=== PATIENT | female | born 1990 | race Two or more races ===

== ENCOUNTER → 2016-06-20 | Outpatient (REF) | payer OTHER ==
[2016-06-20 17:13] LABS: ALBUMIN 3.5 GM/DL (3.2-5.2); ALBUMIN/GLOBULIN RATIO 1.13 (1.00-1.93); ALKALINE PHOSPHATASE 60 U/L (45-117); ALT/SGPT 24 U/L (12-78); ANION GAP 8 MEQ/L (8-16); AST/SGOT 19 U/L (15-37); BILIRUBIN,TOTAL 0.6 MG/DL (0.2-1.0); BLOOD UREA NITROGEN 8 MG/DL (7-18); CALCIUM LEVEL 8.4 MG/DL (8.5-10.1); CARBON DIOXIDE LEVEL 28 MEQ/L (21-32); CHLORIDE LEVEL 105 MEQ/L (98-107); CREATININE FOR GFR 0.73 MG/DL (0.55-1.02); GLOMERULAR FILTRATION RATE > 60.0 (>60); GLUCOSE, FASTING 82 MG/DL (70-105); POTASSIUM SERUM 3.9 MEQ/L (3.5-5.1); SODIUM LEVEL 141 MEQ/L (136-145); TOTAL PROTEIN 6.6 GM/DL (6.4-8.2)
[2016-06-20 17:45] LABS: BASO % 0.8 % (0.0-1.0); EOS # 0.3 K/mm3 (0.0-0.50); EOS % 5.9 % (0.0-3.0); LARGE UNSTAINED CELL # 0.1 K/mm3 (0.0-0.4); LARGE UNSTAINED CELL % 2.6 % (0.0-4.0); LYMPH # 1.9 K/mm3 (1.5-6.5); LYMPH % 35.9 % (24.0-44.0); MEAN CORPUSCULAR HEMOGLOBIN 29.9 pg (27.0-33.0); MEAN CORPUSCULAR HGB CONC 31.6 g/dl (32.0-36.5); MEAN CORPUSCULAR VOLUME 94.5 fl (80.0-96.0); MONO # 0.3 K/mm3 (0.0-0.8); MONO % 5.2 % (0.0-5.0); NEUTROPHILS # 2.7 K/mm3 (1.8-7.7); NEUTROPHILS % 49.7 % (36.0-66.0); PLATELET COUNT, AUTOMATED 181 k/mm3 (150-450); RED CELL DISTRIBUTION WIDTH 12.4 % (11.5-14.5); WHITE BLOOD COUNT 5.4 K/mm3 (4.0-10.0)
[2016-06-21 10:03] LABS: HEPATITIS B SURFACE ANTIBODY POSITIVE (POSITIVE)
[2016-06-28 00:06] LABS: ALT 20 IU/L (0-40); GGT 16 IU/L (0-60); HAPTOGLOBIN 85 mg/dL (34-200); HEPATITIS C QUANTITATION HCV Not Detected IU/mL (.); NECROINFLAM SCORE 0.05 (0.00-0.17); NECROINFLAMM GRADE A0-No activity (.); TOTAL BILIRUBIN 0.5 mg/dL (0.0-1.2)
== END ==
LOC: M SFHCPLAZ 12:59
PROVIDERS: ATTEND Internal Medicine Infectious Disease
DX: B19.20 Unspecified viral hepatitis C without hepatic coma (principal)

== ENCOUNTER → 2016-07-11 | Outpatient (CLI) | payer MEDICAID, OTHER ==
--- NOTE | 2016-07-11 12:23 | REP ---
RIGHT ANKLE, FOUR VIEWS: HISTORY: Pain. The patient is status post repair of a distal fibular fracture. Two metal screws are present. There is no acute fracture or dislocation. The joint space is normal in appearance. Ossified densities are present posterior to the talus. This represents ligamentous or tendon calcification or avulsion fracture fragments. A linear 2.2 cm metallic density is present in the calcaneus. IMPRESSION: The patient is status post repair of a distal fibula fracture. There is no acute fracture or dislocation. Signed by Kelechi Levin MD 07/11/2016 12:26 P
== END ==
LOC: M WUC 11:15
PROVIDERS: ATTEND Family Medicine
DX: M25.571 Pain in right ankle and joints of right foot (principal); Z87.81 Personal history of (healed) traumatic fracture

== ENCOUNTER 2016-07-14 06:25 | Emergency (ER) | payer OTHER ==
[~2016-07-14] VITALS: Ht 165.1 cm; Wt 67.6 kg
[2016-07-14 09:02] VITALS: BP 128/84
[2016-07-21] MEDS ORDERED: PROTPAK PO (11:13)
[2016-07-21] MEDS ORDERED: PROT1TAB2 PO (11:30)
== END 2016-07-14 09:05 | disposition home or self-care (01) ==
LOC: M ED 07:33
DX: F43.0 Acute stress reaction (principal); Z79.899 Other long term (current) drug therapy

== ENCOUNTER → 2016-07-20 | Outpatient (CLI) | payer OTHER ==
[~2016-07-20] MED LIST: PROT1TAB2 PO; PROTPAK PO
--- NOTE | 2016-07-20 08:11 | REP ---
Clinical: Nausea with right upper quadrant abdominal pain. Technique: Jewell scale ultrasound using curved array transducer. Findings: The liver and pancreas are normal in contour, size, and echogenicity without focal hepatic or pancreatic lesions identified. The gallbladder is normal without gallstones, wall thickening or pericholecystic fluid. No biliary ductal dilatation is appreciated, and the common bile duct measures 4.2 mm diameter. The right kidney is normal in reniform shape without hydronephrosis and measures 10.6 x 5.1 x 3.4 cm. No ascites. Impression: Normal right upper quadrant and gallbladder abdominal ultrasound. Signed by Jorge Millan MD 07/20/2016 08:03 A
--- NOTE | 2016-07-20 10:44 | REP ---
Hepatobiliary scan and gallbladder ejection fraction: History: Nausea, right upper quadrant pain, heartburn. Technique: 6.5 mCi of technetium-99m mebrofenin was injected and sequential anterior images are acquired. 65 minutes after the mebrofenin injection, the patient consumed 8 ounces Ensure and an additional 60 minutes of imaging was acquired. Regions of interest are plotted around the gallbladder. Findings: The initial hepatocellular parenchymal uptake phase is normal and homogeneous. Intra- and extra-hepatic bile ducts and duodenum are labeled by the 10 -minute image. The gallbladder is first labeled on the 15 -minute image. There is normal washout from the liver parenchyma into the gallbladder and small intestine on subsequent images. The gallbladder ejection fraction is normal at 54 %. Values greater than 35 % are considered normal with this technique. Impression: Normal hepatobiliary scan and gallbladder ejection fraction. Signed by Sonu Shetty MD 07/20/2016 10:36 A
== END ==
LOC: M RAD 07:31
PROVIDERS: ATTEND Physician Assistant Medical
DX: R11.2 Nausea with vomiting, unspecified (principal); R10.11 Right upper quadrant pain; R12 Heartburn

== ENCOUNTER → 2016-07-28 | Outpatient (CLI) | payer OTHER ==
[~2016-07-28] VITALS: Ht 166.4 cm; Wt 66.9 kg
[~2016-07-28] MED LIST changes: +LIDOCAINE 2% INJ 100 MG/5 ML SDV (FOR ANES.) As Ordered ONE; +MIDAZOLAM INJ 2 MG/2 ML VIAL (J2250) As Ordered ONE; +NS 1,000 ML IV SCH; +PROPOFOL 500 MG/50 ML VIAL As Ordered ONE; +THROMBIN SOLN 5,000 UNITS VIAL As Ordered ONE
--- NOTE | 2016-07-28 11:27 | ROOR ---
Patient Name: Joelle Bedolla Procedure Date: 07/28/2016 11:14 AM Date of : 1990 Age: 26 Room: [facility] Gender: Female Note Status: Finalized Procedure: Upper GI endoscopy Indications: Persistent vomiting (suspected cannabis related vomiting--reduced/resolved with PPI and abstinence) Providers: Robert NORIEGA MD Referring MD: Kiley Woodard MD Requesting Provider: Medicines: Monitored Anesthesia Care Complications: No immediate complications. Procedure: Pre-Anesthesia Assessment: - The heart rate, respiratory rate, oxygen saturations, blood pressure, adequacy of pulmonary ventilation, and response to care were monitored throughout the procedure. The Endoscope was introduced through the mouth, and advanced to the second part of duodenum. The upper GI endoscopy was accomplished without difficulty. The patient tolerated the procedure well. Findings: The examined esophagus was normal. Minimal inflammation was found in the gastric antrum. Biopsies were taken with a cold forceps for Helicobacter pylori testing. The exam of the stomach was otherwise normal. The examined duodenum was normal. Impression: - Normal esophagus. - Mild Gastritis. Biopsied. - Normal examined duodenum. Recommendation: - Observe patient's clinical course. - Continue present medications. - Telephone endoscopist for pathology results in 2 weeks. Robert Noriega MD Robert NORIEGA MD 07/28/2016 11:26:21 AM This report has been signed electronically. Number of Addenda: 0 Note Initiated On: 07/28/2016 11:14 AM Estimated Blood Loss: Estimated blood loss: none.
[2016-07-28 11:45] VITALS: BP 129/95
== END | disposition home or self-care (01) ==
LOC: M OPP 09:19
PROVIDERS: ATTEND Internal Medicine Gastroenterology
DX: K29.70 Gastritis, unspecified, without bleeding (principal); F41.9 Anxiety disorder, unspecified; F17.200 Nicotine dependence, unspecified, uncomplicated; Z79.899 Other long term (current) drug therapy
CPT/HCPCS: 43239; 88305; 88313; 99156; J2250

== ENCOUNTER → 2016-12-12 | Outpatient (REF) | payer OTHER ==
[~2016-12-12] MED LIST changes: -LIDOCAINE 2% INJ 100 MG/5 ML SDV (FOR ANES.) As Ordered ONE; -MIDAZOLAM INJ 2 MG/2 ML VIAL (J2250) As Ordered ONE; -NS 1,000 ML IV SCH; -PROPOFOL 500 MG/50 ML VIAL As Ordered ONE; -THROMBIN SOLN 5,000 UNITS VIAL As Ordered ONE
== END ==
LOC: M SFHCLERA 14:31
PROVIDERS: ATTEND Nurse Practitioner Family
DX: R10.9 Unspecified abdominal pain (principal)

== ENCOUNTER → 2017-03-14 | Outpatient (CLI) | payer OTHER | LOC: M OUTALCOH 09:48 | PROVIDERS: ATTEND Psychiatry & Neurology Psychiatry | DX: F10.20 Alcohol dependence, uncomplicated (principal) ==

== ENCOUNTER → 2017-04-05 | Outpatient (RCR) | payer MEDICAID | LOC: M OUTALCOH 03-22 09:52 | PROVIDERS: ATTEND Psychiatry & Neurology Psychiatry | DX: F10.20 Alcohol dependence, uncomplicated (principal); F12.20 Cannabis dependence, uncomplicated; F17.200 Nicotine dependence, unspecified, uncomplicated ==

== ENCOUNTER 2017-04-06 10:57 | Outpatient (RCR) | payer MEDICAID | END 2017-05-06 | LOC: M OUTALCOH 04-10 09:00 | DX: F10.20 Alcohol dependence, uncomplicated (principal); F12.20 Cannabis dependence, uncomplicated; F17.200 Nicotine dependence, unspecified, uncomplicated ==

== ENCOUNTER → 2017-04-18 | Outpatient (REF) | payer MEDICAID, OTHER | LOC: M SFHCPLAZ 11:10 | PROVIDERS: ATTEND Family Medicine | DX: Z11.3 Encounter for screening for infections with a predominantly sexual mode of transmission (principal); Z12.4 Encounter for screening for malignant neoplasm of cervix; Z86.19 Personal history of other infectious and parasitic diseases ==

== ENCOUNTER → 2019-06-24 | Outpatient (REF) | payer OTHER ==
[2019-06-24 17:58] LABS: HEMATOCRIT 43.2 % (36.0-47.0); HEMOGLOBIN 14.1 g/dl (12.0-15.5); MEAN CORPUSCULAR HGB CONC 32.6 g/dl (32.0-36.5); MEAN CORPUSCULAR VOLUME 88.9 fl (80.0-96.0); PLATELET COUNT, AUTOMATED 212 10^3/uL (150-450); RED BLOOD COUNT 4.86 10^6/uL (4.00-5.40); WHITE BLOOD COUNT 9.2 10^3/uL (4.0-10.0)
[2019-06-25 10:04] LABS: HEPATITIS B SURFACE ANTIGEN NEGATIVE (NEGATIVE); HEPATITIS C VIRUS ABY INDEX 0.1 INDEX (<0.8); HIV 1&2 SCREEN CENTAUR NEGATIVE (NEGATIVE); RUBELLA IgG QUALITATIVE IMMUNE (IMMUNE)
== END ==
LOC: M PLALAB 12:58
PROVIDERS: ATTEND Obstetrics & Gynecology
DX: Z34.91 Encounter for supervision of normal pregnancy, unspecified, first trimester (principal)

== ENCOUNTER → 2019-07-28 | Outpatient (REF) | payer OTHER ==
[2019-07-28 15:11] LABS: CHLAMYDIA DNA AMPLIFICATION NEGATIVE (NEGATIVE); GC DNA AMPLIFICATION NEGATIVE (NEGATIVE)
== END ==
LOC: M SFHCWAGY 12:54
PROVIDERS: ATTEND Obstetrics & Gynecology
DX: Z34.91 Encounter for supervision of normal pregnancy, unspecified, first trimester (principal); Z3A.00 Weeks of gestation of pregnancy not specified

== ENCOUNTER → 2019-08-19 | Outpatient (CLI) | payer OTHER ==
--- NOTE | 2019-08-20 16:15 | REP ---
Clinical: Anatomical evaluation. Comparison: None. Findings: Examination demonstrates a single live intrauterine in cephalic presentation. motion is identified by technologist. Placenta is noted posterior and grade I without evidence for placenta previa or abruption. Amniotic fluid volume is normal. Cervix measures 3.5 cm in length and appears closed. No evidence for nuchal cord. Gestational age by LMP 19 weeks 2 days with CHIP 01/11/2020 . Gestational age by current measurements 18 weeks 6 days with CHIP 01/14/2020 . FHR equals 149 beats per minute. BPD 4.4 cm 19 weeks 2 days HC 16.1 cm 18 weeks 6 days AC 13.5 cm 19 weeks 0 days FL 2.9 cm 19 weeks 0 days HL 2.9 cm 19 weeks 2 days HC/AC ratio 1.19 Estimated weight 268 grams ( 35th percentile). Anatomical assessment demonstrates normal structures including cranium, choroid plexus, cavum, cerebellum/posterior fossa, facial features, lungs, four-chamber heart/ventricular outflow tracts, diaphragm, stomach, cord insertion/three-vessel cord, kidneys/bladder, spine, and extremities. Impression: Single live intrauterine in cephalic presentation demonstrating appropriate interval growth. Anatomical assessment is complete and normal.
== END ==
LOC: M WHC 10:35
PROVIDERS: ATTEND Obstetrics & Gynecology
DX: Z34.92 Encounter for supervision of normal pregnancy, unspecified, second trimester (principal); Z3A.00 Weeks of gestation of pregnancy not specified

== ENCOUNTER → 2019-11-11 | Outpatient (REF) | payer OTHER ==
[2019-11-11 13:31] LABS: HEMATOCRIT 36.4 % (36.0-47.0); HEMOGLOBIN 11.7 g/dl (12.0-15.5); MEAN CORPUSCULAR HEMOGLOBIN 29.5 pg (27.0-33.0); MEAN CORPUSCULAR HGB CONC 32.1 g/dl (32.0-36.5); MEAN CORPUSCULAR VOLUME 91.9 fl (80.0-96.0); PLATELET COUNT, AUTOMATED 215 10^3/uL (150-450); RED BLOOD COUNT 3.96 10^6/uL (4.00-5.40); WHITE BLOOD COUNT 12.1 10^3/uL (4.0-10.0)
== END ==
LOC: M PLALAB 10:02
PROVIDERS: ATTEND Advanced Practice Midwife
DX: Z34.82 Encounter for supervision of other normal pregnancy, second trimester (principal)

== ENCOUNTER → 2019-12-18 | Outpatient (REF) | payer OTHER | LOC: M SFHCWAGY 14:29 | PROVIDERS: ATTEND Advanced Practice Midwife | DX: Z34.90 Encounter for supervision of normal pregnancy, unspecified, unspecified trimester (principal) ==

== ENCOUNTER 2020-01-11 02:09 | Inpatient (IN) | payer OTHER ==
[2020-01-11] MEDS ORDERED: OXYTOCIN 30 UNITS IN 0.9% NaCl 500ML IV BAG (J2590) As Ordered ONE (02:53)
[2020-01-11] MEDS ORDERED: LR 1,000 ML IV SCH (03:16)
[2020-01-11] MEDS ORDERED: OXYTOCIN DRIP 30 UNITS in IV 1 EA IV SCH (03:24)
[2020-01-11] MEDS ORDERED: IBUPROFEN 600MG TAB PO PRN (03:30)
[2020-01-11] MEDS ORDERED: ONDANSETRON 4MG/2ML VIAL IV PRN (03:30)
[2020-01-11] MEDS ORDERED: ACETAMINOPHEN TAB 650MG DOSE (2X325MG) PO PRN (03:30)
[2020-01-11] MEDS ORDERED: ACETAMINOPHEN 500 MG TAB PO PRN (03:30)
[2020-01-11] MEDS ORDERED: DIBUCAINE 1% OINTMENT 30GM TOP PRN (03:30)
[2020-01-11] MEDS ORDERED: MEASLES,MUMPS,RUBELLA VACCINE INJ (MMR-II) (90707) SC SCH (03:30)
[2020-01-11] MEDS ORDERED: RHOGAM 300 MCG (1500 IU) INJ (J2790) IM SCH (03:30)
[2020-01-11] MEDS ORDERED: PROMETHAZINE 25 MG TAB PO PRN (03:30)
[2020-01-11] MEDS ORDERED: LIDOCAINE 1% MDV 20ML VIAL INFIL ONE (03:30)
[2020-01-11] MEDS ORDERED: DOCUSATE SODIUM 100 MG CAP PO PRN (03:30)
[2020-01-11 03:35] LABS: HEMATOCRIT 43.3 % (36.0-47.0); HEMOGLOBIN 14.6 g/dl (12.0-15.5); MEAN CORPUSCULAR HEMOGLOBIN 29.1 pg (27.0-33.0); MEAN CORPUSCULAR HGB CONC 33.7 g/dl (32.0-36.5); MEAN CORPUSCULAR VOLUME 86.4 fl (80.0-96.0); PLATELET COUNT, AUTOMATED 163 10^3/uL (150-450); RED BLOOD COUNT 5.01 10^6/uL (4.00-5.40); WHITE BLOOD COUNT 17.4 10^3/uL (4.0-10.0)
[2020-01-11] MEDS: IBUPROFEN 800 MG TAB PO PRN ×2 (04:19→13:47)
[2020-01-11] MEDS ORDERED: METHYLERGONOVINE MALEATE 0.2 MG/ML VIAL (J2210) IM ONE (04:45)
[2020-01-11 06:43] VITALS: BP 139/86
[2020-01-11] MEDS: PRENATAL VITAMINS CHEWABLE TABLET PO SCH (09:14)
[2020-01-11] MEDS: METHYLERGONOVINE MALEATE 0.2 MG TAB PO SCH ×3 (10:30→22:32)
[2020-01-11 17:44] VITALS: BP 112/80
[2020-01-12] MEDS: METHYLERGONOVINE MALEATE 0.2 MG TAB PO SCH (05:00)
[2020-01-12 06:00] VITALS: BP 113/70
[2020-01-12] MEDS: IBUPROFEN 800 MG TAB PO PRN ×2 (06:39→12:15)
[2020-01-12] MEDS: PRENATAL VITAMINS CHEWABLE TABLET PO SCH (09:02)
== END 2020-01-12 14:10 | disposition home or self-care (01) | DRG 560 ==
LOC: M LDO 02:09 → M LDI 02:25 → M OBS 06:15
PROVIDERS: ADMIT Obstetrics & Gynecology; ATTEND Obstetrics & Gynecology
PROC: 10E0XZZ Delivery of Products of Conception, External Approach (ICD-10-PCS; principal; 2020-01-11)
PROC: 0HQ9XZZ Repair Perineum Skin, External Approach (ICD-10-PCS; 2020-01-11)
DX: O48.0 Post-term pregnancy (principal); O70.0 First degree perineal laceration during delivery; Z37.0 Single live birth; Z3A.40 40 weeks gestation of pregnancy

== ENCOUNTER → 2020-06-29 | Outpatient (CLI) | payer SELFPAY | LOC: M LABSMTC 10:13 | PROVIDERS: ATTEND Pediatrics | DX: Z11.52 Encounter for screening for COVID-19 (principal) ==

== ENCOUNTER → 2020-08-10 | Outpatient (CLI) | payer OTHER ==
--- NOTE | 2020-08-10 08:34 | REP ---
INDICATION: RT ANKLE SPRAIN ? OCCULT FX. COMPARISON: None. TECHNIQUE: Axial noncontrast images through the right foot with coronal and sagittal reformations. FINDINGS: There appears to be an acute nondisplaced fracture along the lateral 3rd of the navicular bone with adjacent soft tissue swelling and small amount of fluid. There is evidence for old medial and lateral malleolar fractures with orthopedic fixation at the fibular tip. Small adjacent bony fragments (series 207; images 90-97) as well as small medial corner fracture of the talus (series 207; image 87-88) are nonspecific and may represent sequelae of old injury or small new fractures. IMPRESSION: 1. Acute nondisplaced fracture along the lateral 3rd of the navicular bone with mild adjacent soft tissue swelling. 2. Evidence for old medial and lateral malleolar fractures with orthopedic fixation at the fibular tip. Small acute versus old fracture fragments cannot definitively be differentiated and there may be a very miniscule fracture at the lateral corner of the talus. <Electronically signed by Jorge Millan > 08/10/20 [id number]
--- NOTE | 2020-08-10 08:45 | REP ---
INDICATION: RT ANKLE SPRAIN ? OCCULT FX. COMPARISON: None. FINDINGS: There appears to be an acute nondisplaced fracture along the medial 3rd of the navicular bone with adjacent soft tissue swelling and small amount of fluid. There is evidence for old medial and lateral malleolar fractures with orthopedic fixation at the fibular tip. Small adjacent bony fragments (series 203; images 35-42) as well as small medial corner fracture of the talus (series 203; image 32-33) are nonspecific and may represent sequelae of old injury or small new fractures. IMPRESSION: 1. Acute nondisplaced fracture along the medial 3rd of the navicular bone with mild adjacent soft tissue swelling. 2. Evidence for old medial and lateral malleolar fractures with orthopedic fixation at the fibular tip. Small acute versus old fracture fragments cannot definitively be differentiated and there may be a very miniscule fracture at the lateral corner of the talus. <Electronically signed by Jorge Millna > 08/10/20 [id number]
== END ==
LOC: M RAD 07:47
PROVIDERS: ATTEND Physician Assistant
DX: S92.254A Nondisplaced fracture of navicular [scaphoid] of right foot, initial encounter for closed fracture (principal); Y92.9 Unspecified place or not applicable; Y93.9 Activity, unspecified; Y99.9 Unspecified external cause status

== ENCOUNTER → 2020-08-27 | Outpatient (REF) | payer OTHER ==
[2020-08-27 17:13] LABS: HEMATOCRIT 44.3 % (36.0-47.0); HEMOGLOBIN 14.1 g/dl (12.0-15.5); MEAN CORPUSCULAR HGB CONC 31.8 g/dl (32.0-36.5); PLATELET COUNT, AUTOMATED 250 10^3/uL (150-450); RED BLOOD COUNT 4.87 10^6/uL (4.00-5.40)
[2020-08-27 17:52] LABS: ALBUMIN 3.7 GM/DL (3.2-5.2); ALT/SGPT 19 U/L (12-78); BILIRUBIN,TOTAL 0.2 MG/DL (0.2-1.0); BLOOD UREA NITROGEN 16 MG/DL (7-18); CALCIUM LEVEL 8.9 MG/DL (8.5-10.1); CARBON DIOXIDE LEVEL 30 MEQ/L (21-32); CHLORIDE LEVEL 106 MEQ/L (98-107); CREATININE FOR GFR 0.82 MG/DL (0.55-1.30); GLOMERULAR FILTRATION RATE > 60.0 (>60); GLUCOSE, FASTING 103 MG/DL (70-100); POTASSIUM SERUM 4.4 MEQ/L (3.5-5.1); SODIUM LEVEL 139 MEQ/L (136-145); TOTAL PROTEIN 7.2 GM/DL (6.4-8.2)
== END ==
LOC: M SFHCPLAZ 15:03
DX: Z76.89 Persons encountering health services in other specified circumstances (principal)

== ENCOUNTER → 2020-09-24 | Outpatient (REF) | payer OTHER | LOC: M SFHCPLAZ 09:57 | PROVIDERS: ATTEND Student in an Organized Health Care Education/Training Program | DX: Z12.4 Encounter for screening for malignant neoplasm of cervix (principal) ==

== ENCOUNTER 2021-08-10 22:19 | Emergency (ER) | payer OTHER ==
[~2021-08-10] VITALS: Ht 165.1 cm; Wt 80.0 kg
[2021-08-10 22:21] VITALS: BP 132/87
[2021-08-11] MEDS ORDERED: KETOROLAC 60MG 2ML VIAL IM ONE (00:45)
[2021-08-11] MEDS ORDERED: MEDR4PAK PO (03:05)
== END 2021-08-11 03:28 | disposition home or self-care (01) ==
LOC: M ED 22:19
DX: M62.830 Muscle spasm of back (principal); F41.9 Anxiety disorder, unspecified; Z77.098 Contact with and (suspected) exposure to other hazardous, chiefly nonmedicinal, chemicals; F12.20 Cannabis dependence, uncomplicated
CPT/HCPCS: 72040; 72110; 96372; 99282; J1885

== ENCOUNTER → 2021-09-21 | Outpatient (REF) | payer OTHER ==
[~2021-09-21] MED LIST changes: +MEDR4PAK PO
== END ==
LOC: M SFHCPLAZ 11:55
PROVIDERS: ATTEND Family Medicine
DX: Z00.00 Encounter for general adult medical examination without abnormal findings (principal); Z53.9 Procedure and treatment not carried out, unspecified reason

== ENCOUNTER → 2021-09-29 | Outpatient (CLI) | payer OTHER ==
[2021-09-29 15:46] LABS: BASO # 0.1 10^3/uL (0.0-0.2); EOS # 0.3 10^3/uL (0.0-0.5); EOS % 5.2 % (0.0-3.0); HEMATOCRIT 42.4 % (36.0-47.0); HEMOGLOBIN 13.8 g/dl (12.0-15.5); LYMPH # 2.4 10^3/uL (1.5-5.0); LYMPH % 41.4 % (24.0-44.0); MEAN CORPUSCULAR HEMOGLOBIN 30.3 pg (27.0-33.0); MEAN CORPUSCULAR HGB CONC 32.5 g/dl (32.0-36.5); MONO # 0.5 10^3/uL (0.0-0.8); MONO % 8.3 % (2.0-8.0); NEUTROPHILS # 2.5 10^3/uL (1.5-8.5); NEUTROPHILS % 43.9 % (36.0-66.0); PLATELET COUNT, AUTOMATED 204 10^3/uL (150-450); RED BLOOD COUNT 4.56 10^6/uL (4.00-5.40); WHITE BLOOD COUNT 5.8 10^3/uL (4.0-10.0)
[2021-09-29 16:22] LABS: ALBUMIN 3.8 GM/DL (3.2-5.2); ALT/SGPT 12 U/L (12-78); BILIRUBIN,TOTAL 0.3 MG/DL (0.2-1.0); BLOOD UREA NITROGEN 13 MG/DL (7-18); CALCIUM LEVEL 8.7 MG/DL (8.5-10.1); CARBON DIOXIDE LEVEL 31 MEQ/L (21-32); CHLORIDE LEVEL 107 MEQ/L (98-107); CHOLESTEROL LEVEL 153 MG/DL (<200); CHOLESTEROL RISK RATIO 1.821 (<5); FREE T4 0.96 NG/DL (0.76-1.46); GLOMERULAR FILTRATION RATE > 60.0 (>60); GLUCOSE, FASTING 92 MG/DL (70-100); HDL CHOLESTEROL 84 MG/DL (>40); LDL CHOLESTEROL 63 MG/DL (<100); NON-HDL-C 69 MG/DL; POTASSIUM SERUM 3.9 MEQ/L (3.5-5.1); SODIUM LEVEL 139 MEQ/L (136-145); TOTAL PROTEIN 6.9 GM/DL (6.4-8.2); TRIGLYCERIDES LEVEL 32 MG/DL (<150)
== END ==
LOC: M PLALAB 14:33
PROVIDERS: ATTEND Student in an Organized Health Care Education/Training Program
DX: Z00.00 Encounter for general adult medical examination without abnormal findings (principal)

== ENCOUNTER 2022-01-08 22:09 | Emergency (ER) | payer OTHER ==
[~2022-01-08] VITALS: Ht 167.6 cm; Wt 79.5 kg
[2022-01-08] MEDS ORDERED: GABA-283 PO (22:20)
[2022-01-09] MEDS ORDERED: BENZONATATE 100MG CAPSULE PO ONE (01:25)
[2022-01-09] MEDS ORDERED: guaiFENesin ER 600 MG TAB PO ONE (01:44)
[2022-01-09] MEDS: COMBIVENT RESPIMAT 100-20MCG INHALER 4GM INH SCH ×2 (01:44→01:45)
[2022-01-09] MEDS ORDERED: NAPR-837 PO (01:53)
[2022-01-09] MEDS ORDERED: BENZ200C70 PO (01:53)
[2022-01-09] MEDS ORDERED: MUCI1TAB16 PO (01:53)
[2022-01-09] MEDS ORDERED: PROAAER10 INH (01:53)
[2022-01-09 01:56] VITALS: BP 122/79
== END 2022-01-09 02:03 | disposition home or self-care (01) ==
LOC: M ED 22:09
DX: J06.9 Acute upper respiratory infection, unspecified (principal); B97.89 Other viral agents as the cause of diseases classified elsewhere

== ENCOUNTER → 2022-02-27 | Outpatient (CLI) | payer OTHER ==
[~2022-02-27] MED LIST changes: +BENZ200C70 PO; +GABA-283 PO; +MUCI1TAB16 PO; +NAPR-837 PO; +PROAAER10 INH
[2022-02-27 18:13] LABS: BASO # 0.1 10^3/uL (0.0-0.2); EOS # 0.1 10^3/uL (0.0-0.5); EOS % 2.4 % (0.0-3.0); HEMATOCRIT 39.9 % (36.0-47.0); HEMOGLOBIN 12.7 g/dl (12.0-15.5); LYMPH # 1.9 10^3/uL (1.5-5.0); LYMPH % 32.1 % (24.0-44.0); MEAN CORPUSCULAR HEMOGLOBIN 29.6 pg (27.0-33.0); MEAN CORPUSCULAR HGB CONC 31.8 g/dl (32.0-36.5); MONO # 0.3 10^3/uL (0.0-0.8); MONO % 5.1 % (2.0-8.0); NEUTROPHILS # 3.5 10^3/uL (1.5-8.5); NEUTROPHILS % 59.2 % (36.0-66.0); PLATELET COUNT, AUTOMATED 227 10^3/uL (150-450); RED BLOOD COUNT 4.29 10^6/uL (4.00-5.40); WHITE BLOOD COUNT 5.9 10^3/uL (4.0-10.0)
[2022-02-27 19:01] LABS: ALBUMIN 3.6 GM/DL (3.2-5.2); ALT/SGPT 18 U/L (12-78); BILIRUBIN,TOTAL 0.3 MG/DL (0.2-1.0); BLOOD UREA NITROGEN 10 MG/DL (7-18); CALCIUM LEVEL 8.8 MG/DL (8.5-10.1); CARBON DIOXIDE LEVEL 28 MEQ/L (21-32); CHLORIDE LEVEL 106 MEQ/L (98-107); CREATININE FOR GFR 0.72 MG/DL (0.55-1.30); GLOMERULAR FILTRATION RATE > 60.0 (>60); GLUCOSE, FASTING 99 MG/DL (70-100); POTASSIUM SERUM 4.2 MEQ/L (3.5-5.1); RHEUMATOID FACTOR QUANT < 10.0 IU/ML (<15.0); SODIUM LEVEL 139 MEQ/L (136-145); THYROID STIMULATING HORMONE 0.565 uIU/ML (0.358-3.740); TOTAL PROTEIN 6.9 GM/DL (6.4-8.2)
[2022-02-27 19:38] LABS: VITAMIN B12 LEVEL 393 PG/ML (247-911)
[2022-02-27 20:19] LABS: ERYTHROCYTE SEDIMENTATION RATE 3 mm/hr (0-20)
[2022-03-01 08:37] LABS: ALBUMIN 4.11 GM/DL (3.29-5.55); ALBUMIN % 59.5 % (55.8-66.1); ALPHA-1-GLOBULIN % 4.2 % (2.9-4.9); ALPHA-1-GLOBULINS 0.29 GM/DL (0.17-0.41); ALPHA-2-GLOBULINS 0.63 GM/DL (0.42-0.99); ALPHA-2-GLOBULINS % 9.3 % (7.1-11.8); BETA-1-GLOBULINS 0.47 GM/DL (0.28-0.60); BETA-1-GLOBULINS % 6.8 % (4.7-7.2); BETA-2-GLOBULINS 0.34 GM/DL (0.19-0.55); BETA-2-GLOBULINS % 4.9 % (3.2-6.5); GAMMA GLOBULIN % 15.4 % (11.1-18.8); GAMMA GLOBULINS 1.06 GM/DL (0.65-1.58)
== END ==
LOC: M LAB 17:03
PROVIDERS: ATTEND Psychiatry & Neurology Neurology
DX: G62.9 Polyneuropathy, unspecified (principal)

== ENCOUNTER → 2022-03-09 | Outpatient (REF) | payer OTHER | LOC: M LAB REF 09:05 | PROVIDERS: ATTEND Psychiatry & Neurology Neurology | DX: G62.9 Polyneuropathy, unspecified (principal) ==

== ENCOUNTER → 2023-08-30 | Outpatient (CLI) | payer OTHER ==
[~2023-08-30] MED LIST changes: -GABA-283 PO; +GABA-284 PO
[2023-08-30 18:59] LABS: BASO # 0.1 10^3/uL (0.0-0.2); BASO % 0.6 % (0.0-1.0); EOS # 0.3 10^3/uL (0.0-0.5); EOS % 3.9 % (0.0-3.0); HEMATOCRIT 34.9 % (36.0-47.0); HEMOGLOBIN 11.3 g/dl (12.0-15.5); LYMPH # 2.6 10^3/uL (1.5-5.0); MEAN CORPUSCULAR HEMOGLOBIN 29.3 pg (27.0-33.0); MEAN CORPUSCULAR HGB CONC 32.4 g/dl (32.0-36.5); MEAN CORPUSCULAR VOLUME 90.4 fl (80.0-96.0); MONO # 0.4 10^3/uL (0.0-0.8); MONO % 5.3 % (2.0-8.0); NEUTROPHILS # 4.5 10^3/uL (1.5-8.5); NEUTROPHILS % 56.9 % (36.0-66.0); PLATELET COUNT, AUTOMATED 200 10^3/uL (150-450); RED BLOOD COUNT 3.86 10^6/uL (4.00-5.40)
[2023-08-30 19:25] LABS: ALBUMIN 3.3 G/DL (3.2-5.2); ALKALINE PHOSPHATASE 37 U/L (46-116); ALT/SGPT < 9 U/L (7.0-40); AST/SGOT 8 U/L (<34); BILIRUBIN,TOTAL 0.6 MG/DL (0.3-1.2); BLOOD UREA NITROGEN 14 MG/DL (9-23); CALCIUM LEVEL 8.7 MG/DL (8.5-10.1); CARBON DIOXIDE LEVEL 28 MMOL/L (20-31); CHLORIDE LEVEL 105 MMOL/L (98-107); CREATININE FOR GFR 0.75 MG/DL (0.55-1.30); GLOMERULAR FILTRATION RATE > 60.0 (>60); GLUCOSE, FASTING 96 MG/DL (60-100); POTASSIUM SERUM 4.1 MMOL/L (3.5-5.1); SODIUM LEVEL 139 MMOL/L (136-145); TOTAL PROTEIN 6.2 G/DL (5.7-8.2)
[2023-08-30 19:28] LABS: THYROID STIMULATING HORMONE 1.626 uIU/ML (0.55-4.78)
== END ==
LOC: M LAB 18:24
PROVIDERS: ATTEND Student in an Organized Health Care Education/Training Program
DX: N92.1 Excessive and frequent menstruation with irregular cycle (principal)